=== PATIENT | male | born 1990 | race Caucasian/White ===

== ENCOUNTER 2019-08-19 20:40 | Emergency (ER) | payer OTHER ==
[2019-08-19] MEDS ORDERED: LIDOCAINE 1% 10 ML VIAL INJ ONE (21:41)
[2019-08-19] MEDS ORDERED: CHLORHEXIDINE GLUCONATE 4 % 15 ML UD TOP ONE (21:44)
[2019-08-19 21:49] VITALS: O2SAT 99
[2019-08-19] MEDS ORDERED: TETANUS,DIPHTHERIA,PERTUSSIS 1 EA SYG IM ONE (22:06)
--- NOTE | 2019-08-19 22:06 | ED.PDOC ---
History of Present Illness - General Chief Complaint: Laceration Stated Complaint: lac to left pointer finger Time Seen by Provider: 08/19/19 22:04 Additional Information: Is a 29-year-old male patient, with no known medical problems into the ER after he cut his second finger on the volar aspect with a knife he was trying to cut plastic with his pocket knife when he slipped and cut his finger Patient is up to date in his tetanus - History of Present Illness Occurred: just prior to arrival Pain Location: upper extremity Method of Injury: other - cut Improving Factors: nothing Worsening Factors: nothing Loss of Consciousness: no loss of consciousness Allergies/Adverse Reactions: Allergies NO KNOWN ALLERGY Allergy (Verified 08/19/19 21:46) Home Medications: Ambulatory Orders Acetaminophen W/ Codeine [Tylenol W/ CODEINE #3] 1 ea PO Q6HRS #20 08/19/19 Amoxicillin & Pot Clavulanate [Augmentin Tab] 875 mg PO BID #10 tab 08/19/19 Review of Systems - Review of Systems Constitutional: States: no symptoms reported EENTM: States: no symptoms reported Respiratory: States: no symptoms reported Cardiology: States: no symptoms reported Gastrointestinal/Abdominal: States: no symptoms reported Genitourinary: States: no symptoms reported Musculoskeletal: States: no symptoms reported Skin: States: no symptoms reported Neurological: States: no symptoms reported Endocrine: States: no symptoms reported Hematologic/Lymphatic: States: no symptoms reported Past Medical History (General) - Patient Medical History Hx Seizures: No Hx Stroke: No Hx Dementia: No Hx Asthma: No Hx of COPD: No Hx Cardiac Disorders: No Hx Congestive Heart Failure: No Hx Pacemaker: No Hx Hypertension: No Hx Thyroid Disease: No Hx Diabetes: No Hx Gastroesophageal Reflux: No Hx Renal Disease: No Hx Cancer: No Hx of HIV: No Hx Hepatitis C: No Hx MRSA: No - Vaccination History Hx Tetanus, Diphtheria Vaccination: - OVER 5 YEARS Hx Influenza Vaccination: Yes Hx Pneumococcal Vaccination: No Immunizations Up to Date: No - Social History Hx Chewing Tobacco Use: No Hx Alcohol Use: Yes Hx Substance Use: No Hx Substance Use Treatment: No Hx Depression: No Feels Threatened In Home Enviroment: No Feels Threatened In a Relationship: No Hx Physical Abuse: No Hx Emotional Abuse: No Hx Suspected Abuse: No - Female History Patient is a Female of Child Bearing Age (10 -59 yrs old): No Patient : No Physical Exam - Physical Exam General Appearance: Alert, Well Developed, Well Groomed, Well Hydrated Eye Exam: bilateral normal ENT Exam: hearing grossly normal, no evidence of ENT injury, no dental injury Cardiovascular/Respiratory: regular rate, rhythm, no M/R/G, normal peripheral pulses, no JVD, normal breath sounds, no respiratory distress Gastrointestinal/Abdominal: normal bowel sounds, non tender, soft, no organomegaly, no pulsatile mass Back Exam: normal inspection, no CVA tenderness, no vertebral tenderness Extremity Exam: other - There is a 2 cm laceration noted PIP joint on the volar aspect of the left hand second digit, patient is able to flex and extend the fingers without difficulty 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, no motor/sensory deficits, alert, normal mood/affect, oriented x 3 Skin Exam: normal color Procedures - Laceration/Wound Repair Left Volar Finger Wound's Depth, Shape: superficial, linear Wound Explored: clean Irrigated w/ Saline (cc's): 50 Betadine Prep?: No Anesthesia: 1% Lidocaine Volume Anesthetic (cc's): 5 - Digital block Wound Debrided: minimal Wound Repaired With: sutures Suture Size/Type: 4:0, nylon Number of Sutures: 3 Layer Closure?: No Sterile Dressing Applied?: No Splint Applied?: Yes - Metal splint Sling Applied?: No Progress: Using a digital block I was able to put 3 stitches in patient laceration at the PIP joint on the volar aspect of the left hand at the second digit. Patient is able to flex and extend the finger when I difficulties, I did not see any evidence of tendon laceration but I discussed with the patient that is important that he might have a partial tendon tear, he will be put on a metal splint will be discharged home with Augmentin and will have him follow-up with a hand specialist Departure - Departure Clinical Impression: Laceration Finger laceration Qualifiers: Encounter type: initial encounter Finger: index finger Damage to nail status: without damage Foreign body presence: without foreign body Laterality: left Qualified Code(s): S61.211A - Laceration without foreign body of left index finger without damage to nail, initial encounter Disposition: Discharge to Home or Self Care Departure Forms: ED Discharge - Pt. Copy, Patient Portal Self Enrollment Instructions: DI for Laceration Repair, DI for Laceration Repair -- Simple Diet: full liquid diet Prescriptions: Acetaminophen W/ Codeine [Tylenol W/ CODEINE #3] 1 ea PO Q6HRS #20 Amoxicillin & Pot Clavulanate [Augmentin Tab] 875 mg PO BID #10 tab Home Medications: Ambulatory Orders Acetaminophen W/ Codeine [Tylenol W/ CODEINE #3] 1 ea PO Q6HRS #20 08/19/19 Amoxicillin & Pot Clavulanate [Augmentin Tab] 875 mg PO BID #10 tab 08/19/19
[2019-08-19] MEDS ORDERED: AMOXICILLIN & POT CLAVULANATE 875 MG TAB PO ONE (22:09)
[2019-08-20 00:10] VITALS: BP 132/86; TEMP 98.1
== END 2019-08-19 22:45 | disposition home or self-care (01) ==
LOC: ER 20:40
DX: S61.211A Laceration without foreign body of left index finger without damage to nail, initial encounter (principal); W26.0XXA Contact with knife, initial encounter; Y92.9 Unspecified place or not applicable